=== PATIENT | female | born 1965 | race Caucasian/White ===

== ENCOUNTER 2016-07-02 10:09 | Emergency (ER) | payer BC ==
[~2016-07-02] VITALS: Ht 167.6 cm; Wt 54.0 kg
[~2016-07-02 10:09] MED LIST: NAPR500T PO
[2016-07-02 10:12] VITALS: BP 129/82
[2016-07-02 11:41] LABS: BILIRUBIN,URINE NEGATIVE (NEG); GLUCOSE,URINE NEGATIVE (NEG); NITRITE,URINE POSITIVE (NEG); PH,URINE 6.5; PROTEIN,URINE NEGATIVE (NEG-TRACE); UROBILINOGEN,URINE 0.2 mg/dL (0.2 mg/dL)
--- NOTE | 2016-07-02 12:18 | PHYS DOC ---
Past Medical History Past Medical History: No Pertinent History Past Surgical History: , Other Additional Past Surgical Histo: 2C-sections, 4Back surgeries,BREAST AUGMENTATION Smoking: Quit Less Than 1 Year Alcohol Use: Occasionally Drug Use: Marijuana Adult General Chief Complaint Chief Complaint: VAGINAL PROBLEM [facility] HPI Patient is a 50 year old female who presents with vaginal itching and discharge for 3-4 days. She has urinary frequency without dysuria, urinary urgency, or hematuria. She has suprapubic pain. She denies fever, nausea, vomiting, or flank pain. The patient had intercourse with a new partner approximately one week ago. She is concerned for STDs and requests prophylactic treatment in the emergency department today. She is no longer having menstrual cycles. Her PCP is Dr. Gennaro Irby. Review of Systems Review of Systems Constitutional: Denies fever or chills. [] Eyes: Denies change in visual acuity, redness, or eye pain. [] HENT: Denies ear pain, nasal congestion or sore throat. [] Respiratory: Denies cough or shortness of breath. [] Cardiovascular: Denies chest pain, palpitations or edema. [] GI: Denies nausea, vomiting, bloody stools or diarrhea. Reports suprapubic pain. : Denies dysuria, hematuria or urinary urgency. Reports urinary frequency, vaginal itching, and vaginal discharge. Musculoskeletal: Denies back pain or joint pain. [] Integument: Denies rash or skin lesions. [] Neurologic: Denies headache, focal weakness or sensory changes. [] Endocrine: Denies polyuria or polydipsia. [] Psych: Denies anxiety or depression. [] All systems reviewed and negative unless otherwise stated in the HPI. Current Medications Current Medications Current Medications Medications (Trade) Dose Ordered Sig/Rohini Start Time Stop Time Status Last Admin Dose Admin Azithromycin (Zithromax) 1,000 mg 1X STAT 07/02/16 12:43 07/02/16 12:46 DC 07/02/16 12:47 1,000 MG Ceftriaxone Sodium (Rocephin Im) 250 mg 1X ONCE 07/02/16 12:30 07/02/16 12:31 DC 07/02/16 12:46 250 MG Allergies Allergies Allergies Coded Allergies Type Severity Reaction Last Updated Verified No Known Drug Allergies 10/16/13 No Physical Exam Physical Exam Constitutional: Well developed, well nourished, no acute distress, non-toxic appearance. [] HENT: Normocephalic, atraumatic, oropharynx moist. [] Eyes: PERRLA, EOMI, conjunctiva normal, no discharge. [] Neck: Normal range of motion, no tenderness, supple, no stridor. [] Cardiovascular: Heart rate regular rhythm, no murmur. [] Lungs & Thorax: Bilateral breath sounds clear to auscultation without wheezes, rales, or rhonchi. [] Abdomen: Bowel sounds normal, soft, no tenderness, no masses, no pulsatile masses. [] Female : ED RN manager center present during exam. Normal external genitalia. There is white discharge within the vagina. There is no cervicitis or CMT. There is no adnexal mass or tenderness. Skin: Warm, dry, no erythema, no rash. [] Back: No midline tenderness, no CVA tenderness. [] Extremities: No tenderness, ROM intact, no edema. Distal pulses equal bilaterally. [] Neurologic: Alert and oriented X 3, normal motor function, normal sensory function, no focal deficits noted. [] Psychologic: Affect normal, judgement normal, mood normal. [] Current Patient Data Vital Signs Vital Signs Date Time Temp Pulse Resp B/P Pulse Ox O2 Delivery O2 Flow Rate FiO2 07/02/16 10:12 99.3 82 18 129/82 99 Room Air 99.3 Lab Values Laboratory Tests Test 07/02/16 11:25 Urine Collection Type Void Urine Color Yellow Urine Clarity Clear Urine pH 6.5 Urine Specific [place] 1.025 Urine Protein Negativemg/dL (NEG-TRACE) Urine Glucose (UA) Negativemg/dL (NEG) Urine Ketones (Stick) Negativemg/dL (NEG) Urine Blood Trace (NEG) Urine Nitrite Positive (NEG) Urine Bilirubin Negative (NEG) Urine Urobilinogen Dipstick 0.2mg/dL (0.2 mg/dL) Urine Leukocyte Esterase Large (NEG) Urine RBC 1-2/HPF (0-2) Urine WBC 20-40/HPF (0-4) Urine Squamous Epithelial Cells Mod/LPF Urine Bacteria Many/HPF (0-FEW) Urine Trichomonas Microbiology 07/02/16 Wet Prep - Final, Complete WET PREP Final YEAST NONE SEEN TRICHOMONAS PRESENT CLUE CELLS CLUE CELLS PRESENT ALTERED MARY ANNE ALTERED MARY ANNE PRESENT SUGGESTIVE OF BACTERIAL VAGINOSIS WBCS MODERATE SQUAMOUS EPS MODERATE EKG EKG [] Radiology/Procedures Radiology/Procedures [] Course & Med Decision Making Course & Med Decision Making Pertinent Labs and Imaging studies reviewed. (See chart for details) [] Dragon Disclaimer Dragon Disclaimer This electronic medical record was generated, in whole or in part, using a voice recognition dictation system. Departure Departure Impression: Primary Impression: UTI (urinary tract infection) Additional Impressions: Trichomonas vaginitis Bacterial vaginosis Concern about STD in female without diagnosis Disposition: 01 HOME, SELF-CARE Condition: STABLE Referrals: GENNARO IRBY (PCP) Patient Instructions: Bacterial Vaginosis, [id number], Sexually Transmitted Disease, [id number], Trichomoniasis-Brief, Urinary Tract Infection, Easy-to- Read Additional Instructions: Your urine was positive for infection. Your vaginal test was positive for Trichomonas and bacterial vaginosis. Trichomonas is an STD, bacterial vaginosis is not. You were also tested for gonorrhea and chlamydia in the emergency department today we will not receive those results back for 2-3 days. You were treated for gonorrhea and chlamydia in the emergency department today. You will receive a phone call if your test results are positive. Please complete all the prescribed antibiotics, even if you are feeling better. Please do not have sex for one week to be sure that the treatment is complete. Please inform your partner that you tested positive for Trichomonas so that he may be tested and treated as well. Return to the emergency department if you have any new or concerning symptoms. Scripts Sulfamethoxazole/Trimethoprim (Bactrim Ds Tablet)1 Each Tablet1 Tab PO BID #10 TAB Prov:GINA MALONE 07/02/16 Metronidazole (Flagyl)500 Mg Tablet1 Tab PO BID #14 TAB Prov:GINA MALONE 07/02/16 Problem Qualifiers Primary Impression: UTI (urinary tract infection) Urinary tract infection type: acute cystitis Hematuria presence: without hematuria Qualified Code: N30.00 - Acute cystitis without hematuria GINA MALONE Jul 02, 2016 12:17
[2016-07-02 12:21] LABS: BACTERIA,URINE MANY /HPF (0-FEW); SQUAMOUS EPITHELIAL CELL,UR MOD /LPF; WBC,URINE 20-40 /HPF (0-4)
[2016-07-02] MEDS ORDERED: CEFTRIAXONE IM 250 MG VIAL. IM ONE (12:30)
[2016-07-02] MEDS ORDERED: AZITHROMYCIN 250 MG TABLET. PO ONE (12:30)
[2016-07-02] MEDS ORDERED: AZITHROMYCIN 250 MG TABLET PO ONE (12:30)
[2016-07-02] MEDS ORDERED: AZITHROMYCIN 250 MG TABLET PO STA (12:43)
[2016-07-02] MEDS ORDERED: METR500T PO (13:17)
[2016-07-02] MEDS ORDERED: SULF1TAB24 PO (13:17)
--- NOTE | 2016-07-04 16:23 | VNOTE ---
CALL BACK NOTE CALL BACK Microbiology 07/02/16 Wet Prep - Final, Complete 07/02/16 Urine Culture - Final, Complete 07/02/16 Urine Culture Result 1 (JAVI) - Final, Complete 07/02/16 Antimicrobic Susceptibility - Final, Complete The patient left prior to receiving her prescriptions or final results yesterday. Her prescriptions were left at the triage desk and the nurse called her to inform her to pick them up. I called her today to be sure she got the message. She has not yet gotten the prescriptions. I informed her that her urine was positive for infection, as well as positive bacterial vaginosis and trichomonas. I stressed the importance of treatment of these infections. She will come to get the prescriptions today. I verified that the paperwork is still at triage. GINA MALONE Jul 04, 2016 16:23
== END 2016-07-02 13:24 | disposition home or self-care (01) ==
LOC: ER 10:09
DX: N30.00 Acute cystitis without hematuria (principal); A59.01 Trichomonal vulvovaginitis; F12.10 Cannabis abuse, uncomplicated; Z11.3 Encounter for screening for infections with a predominantly sexual mode of transmission; Z87.891 Personal history of nicotine dependence
CPT/HCPCS: 81001; 87086; 87491; 87591; 96372; 99284; J0696; Q0111; Q0144

== ENCOUNTER 2016-07-27 16:50 | Emergency (ER) | payer BC ==
[~2016-07-27] VITALS: Ht 172.7 cm; Wt 55.3 kg
[~2016-07-27 16:50] MED LIST changes: +METR500T PO; +SULF1TAB24 PO
[2016-07-27 17:45] VITALS: BP 149/95
[2016-07-27] MEDS ORDERED: AMOX1TAB61 PO (18:26)
--- NOTE | 2016-07-27 18:26 | PHYS DOC ---
Past Medical History Past Medical History: Other Additional Past Medical Histor: TBI Past Surgical History: , Other Additional Past Surgical Histo: 2C-sections, 4Back surgeries,BREAST AUGMENTATION Additional Information: currently wearing nicotine patch Alcohol Use: None Drug Use: Marijuana Adult General Chief Complaint Chief Complaint: SORE THROAT HPI HPI Patient is a 50 year old female presents emergency Department stating she's been having frontal headache for the last 2 weeks. She states that it's a pressure type headache. She has not been taking anything for the pain and discomfort. She also states that she's been having a low-grade fever with a sore throat for the last 2-3 days. She does state that she has been having some nasal drainage and discharge. She denies any nausea vomiting or any diarrhea. Review of Systems Review of Systems Constitutional: low grade fever at home Eyes: Denies change in visual acuity, redness, or eye pain [] HENT:nasal congestion and sore throat [] Respiratory: Denies cough or shortness of breath [] Cardiovascular: No additional information not addressed in HPI [] GI: Denies abdominal pain, nausea, vomiting, bloody stools or diarrhea [] : Denies dysuria or hematuria [] Musculoskeletal: Denies back pain or joint pain [] Integument: Denies rash or skin lesions [] Neurologic: Denies headache, focal weakness or sensory changes [] Allergies Allergies Allergies Coded Allergies Type Severity Reaction Last Updated Verified codeine Allergy Intermediate itching 07/27/16 Yes Physical Exam Physical Exam Constitutional: Well developed, well nourished, no acute distress, non-toxic appearance. [] HENT: Normocephalic, atraumatic, bilateral external ears normal, oropharynx moist, no oral exudates, nose normal. Bilateral tympanic membranes appear to be normal. Throat with erythematous no exudate noted no uvula deviation noted. Eyes: PERRLA, EOMI, conjunctiva normal, no discharge. [] Neck: Normal range of motion, no tenderness, supple, no stridor. [] Cardiovascular:Heart rate regular rhythm, no murmur [] Lungs & Thorax: Bilateral breath sounds clear to auscultation [] Skin: Warm, dry, no erythema, no rash. [] Back: No tenderness Extremities: No tenderness, no cyanosis, no clubbing, ROM intact, no edema. [] Neurologic: Alert and oriented X 3, normal motor function, normal sensory function, no focal deficits noted. [] Psychologic: Affect normal, judgement normal, mood normal. [] Current Patient Data Vital Signs Vital Signs Date Time Temp Pulse Resp B/P Pulse Ox O2 Delivery O2 Flow Rate FiO2 07/27/16 17:45 99.7 80 20 100 Room Air 99.7 EKG EKG [] Radiology/Procedures Radiology/Procedures [] Course & Med Decision Making Course & Med Decision Making Pertinent Labs and Imaging studies reviewed. (See chart for details) Rapid strep was negative. Patient will be placed on Augmentin 1 tablet twice day for the next 10 days. Recommended Sudafed to help with sinus pressure as well as Mucinex DM. Patient agrees with discharge instructions, treatment regimens and follow-up recommendations. Since symptoms to return back to emergency department been provided. Patient agrees with discharge instructions treatment regimens and follow-up recommendations. [] Dragon Disclaimer Dragon Disclaimer This electronic medical record was generated, in whole or in part, using a voice recognition dictation system. Departure Departure Impression: Primary Impression: Acute sinusitis Disposition: 01 HOME, SELF-CARE Condition: STABLE Referrals: NO PCP (PCP) Patient Instructions: Sinusitis, [id number] Additional Instructions: Activity as tolerated. Tylenol or ibuprofen for fever chills or generalized body aches and discomfort. Sudafed instructed by [employer]. Mucinex DM instructed by [employer] as well. Drink plenty of fluids such as water. Primary care physician in the next 5-7 days. Return back to emergency prior signs and symptoms of become worse. Scripts Amoxicillin/Potassium Clav (Augmentin 875-125 Tablet)1 Each Tablet1 Tab PO BID # 20 TAB Prov:BOSSMAN RODGERS APRN 07/27/16 BOSSMAN RODGERS APRN Jul 27, 2016 18:26
[2016-07-27] MEDS ORDERED: IBUPROFEN 600 MG TABLET. PO ONE (18:30)
[2016-07-28 07:30] LABS: NEGATIVE OBC STREP NEG; POSITIVE OBC STREP POS
== END 2016-07-27 18:30 | disposition home or self-care (01) ==
LOC: ER 16:50
DX: J01.90 Acute sinusitis, unspecified (principal); F12.10 Cannabis abuse, uncomplicated; Z88.5 Allergy status to narcotic agent
CPT/HCPCS: 87070; 87880; 99283

== ENCOUNTER → 2016-09-15 | Outpatient (CLI) | payer BC ==
[~2016-09-15] MED LIST changes: +AMOX1TAB61 PO
--- NOTE | 2016-09-15 15:09 | KCIC ---
MRI Cervical Spine Without Contrast History: Neck pain/cervicalgia, previous trauma, numbness in extremities Technique: Multiplanar, multi sequential noncontrast MR imaging was performed of the cervical spine. Comparison: None Findings: There is some motion degradation. Cervical vertebral body stature is mostly preserved other than superior C6 Schmorl's node. There is amorphous edema about the superior C6 Schmorl's node and also about inferior C5 endplate, also minimally about superior C7 endplate and small Schmorl's node. There is more advanced degenerative disc disease C5-C6 and to a lesser degree at C3-4 and minimally at C6-7. There is negligible anterior spondylolisthesis C7-T1. There is mild dextroscoliosis. C2-C3: Spinal canal and neural foramina are adequate. C3-C4: Spinal canal is adequate. There is uncovertebral degenerative change bilaterally greater on the left. There is mild narrowing of the right neural foramen, at least moderate narrowing of the left neural foramen. C4-C5: There is posterior annular tear. Spinal canal and neural foramina are adequate. C5-C6: There is disc osteophyte complex and superimposed broad posterior bulge, minimal narrowing of the central canal to 8 to 9 mm. There is uncovertebral degenerative change. There is suspected mild/moderate left and mild right neural foramen compromise. C6-C7: There is posterior bulge/broad protrusion which slightly indents the ventral thecal sac, central canal minimally narrowed to 9-10 mm. Neural foramina are overall adequate. C7-T1: Spinal canal and neural foramina are adequate. There is likely nerve root sleeve cyst in the distal right neural foramen up to 8 mm transverse. Impression: 1. There is mild spinal stenosis C5-C6 and C6-7. 2. There is neural foramina compromise as described greatest on the left at C3-4 and C5-C6. 3. There is advanced degenerative disc disease at C5-C6 and to a lesser degree at C3-4 and C6-7. Endplate edema greatest at C5-C6 is probably reactive/degenerative in etiology. There is mild spondylosis. Electronically signed by: Samy Rogel MD (09/15/2016 3:06 PM)
== END | disposition home or self-care (01) ==
LOC: KCIC MRI 13:51
PROVIDERS: ATTEND Family Medicine
DX: M48.02 Spinal stenosis, cervical region (principal); M50.322 Other cervical disc degeneration at C5-C6 level; M50.321 Other cervical disc degeneration at C4-C5 level; M50.323 Other cervical disc degeneration at C6-C7 level
CPT/HCPCS: 72141

== ENCOUNTER → 2017-01-28 | Outpatient (CLI) | payer BC ==
[~2017-01-28] MED LIST changes: +IOHEXOL 180 MG/ML 10 ML VIAL. ONE; +methylPREDNISolone ACETATE 40 MG/ML VIAL. ONE; +methylPREDNISolone ACETATE 80 MG/ML VIAL. ONE
--- NOTE | 2017-01-29 02:08 | PAIN ---
DATE OF SERVICE: 01/28/2017 INITIAL CONSULTATION FOR PAIN CLINIC CHIEF COMPLAINT: Neck and bilateral upper extremity pain, left greater than right. HISTORY OF PRESENT ILLNESS: This is a 51-year-old female who presents with history of pain in the base of the neck, shoulders, and upper extremities for about 2 years. The patient reports that she was involved in an accident at work about 2 months ago or so and hurt her left shoulder. She has not had this evaluated yet through worker's comp or through any other modalities. The patient reports still significant pain in both these areas. She did have an MRI scan of the cervical spine dated 09/15/2016 showing a C5-C6 disk osteophyte complex and a broad-based posterior bulge with minimal narrowing of the central canal and suspected mild to moderate left and mild right neural foraminal compromise, also C6-C7 showing posterior bulge broad protrusion slightly indenting the ventral thecal sac narrowed at 9-0 mm. Again, patient has not had any imaging or any studies by her report on her left shoulder from her injury at work. The patient reports the pain is constant, sharp, stabbing, throbbing, shooting, radiating type, tingling, numbness, changes during the day, worse with activity, better with resting with cramping, aching, it keeps her awake at night almost constantly. The patient reports it is difficult for her to lay down at all because of the pain in the neck and the shoulder on the left side, especially laying on the left side. The patient reports it can affect her bowel or bladder control, causes more urgency with no loss of continence and it affects her ability to walk too because she gets dizzy when her neck pain and shoulder pain is at its worst. The patient rates her pain on disability rating from 0-10, 10 being the worst, as an 8 with family and home responsibilities, 10 with recreation, social activity and occupation, 8 with sexual behavior, 10 with self care and 10 with life support activities. The patient has tried some chiropractic treatment as well as doing exercise currently neither of which is significantly decreased the pain. She has not had any formal physical therapies or other modalities at this time. 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 PAST MEDICAL HISTORY: Significant for diet-controlled diabetes, cigarettes smoking, dizziness, headaches, seizures, arthritis, previous history of drug abuse including marijuana and methamphetamines. PREVIOUS SURGERY: Include D and C, lumbar fusion at L4-L5, x 4, 2 previous C-sections and breast augmentation. CURRENT MEDICATIONS: Include only [id number] Advil and Tylenol. REVIEW OF SYSTEMS: The patient's review of systems is positive for those items mentioned in the history of present illness. All systems reviewed and otherwise negative. It is complete, full and well documented on the patient's chart. ALLERGIES: The patient is allergic to CODEINE. PHYSICAL EXAMINATION: VITAL SIGNS: The patient's blood pressure is 132/79, pulse 83, respirations 18, temperature 98.1 degrees Fahrenheit, height is 5 feet 8 inches, weighs 117 pounds. GENERAL: The patient is awake, alert, oriented, appropriate, very pleasant demeanor. HEENT: Head shows normocephalic, atraumatic. Extraocular movements are intact and symmetrical. Oral cavity shows mucous membranes moist and pink. Dentition is intact. NECK: Shows anterior throat supple without palpable lymphadenopathy noted. Swallow reflex is symmetrical. CHEST: Shows normal on inspection. Breath sounds are clear to auscultation bilaterally. HEART: Shows S1 and S2 clear. No murmurs auscultated. ABDOMEN: Soft, nontender, nondistended. No palpable organomegaly. No rebound or guarding demonstrated. BACK: Shows spine grossly in the midline. Normal appearing cervical lordotic curvature, thoracic kyphotic curvature, and lumbar lordotic curvature. The patient has well-healed surgical scars noted in the lumbar distribution, some flattening of lumbar curvature. Neck shows posterior cervical musculature is symmetrical on inspection without significant atrophy, hypertrophy or asymmetry, shows some [id number] tenderness with palpation throughout the upper, middle, lower distribution of paraspinous muscles, but only diffusely without radiation. No tenderness over the upper thoracic paraspinous musculature to any significant amount, some tenderness in the superior medial and lateral trapezius muscles, mostly medial and superior, again the right and left essentially equal. The patient shows good rotational motion of the cervical spine, some mild guarding with rotation, but past 45 degrees right and left as well as full extension, full forward flexion without mechanical limitation. Patient's upper extremities show deep tendon reflexes 2+ in the biceps and triceps tendons. 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 Peripheral pulses are 2+ radial distribution. No peripheral edema is noted. No clubbing, no cyanosis. Upper extremities are warm and dry to touch, equal in color and appearance. Peripheral pulses are 2+ radial distribution bilaterally. Shoulder shrug is strong and intact without loss of strength on resistance, but with pain reported in the bilateral shoulders as well as abduction of the shoulders to 90 degrees without loss of strength on resistance again, but with pain reported in the bilateral upper shoulders and the base of the neck without radiation. IMPRESSION: 1. This is a 51-year-old female with about 2-year history of pain in the base of the neck and upper extremities. 2. Injury at work by her report with left shoulder about 2 months ago or so. 3. MRI scan of cervical spine as noted. 4. Arthritis. 5. Cigarettes smoking. PLAN: Options were discussed with the patient including conservative medical management, physical therapy, interventional techniques and she would like to pursue interventional techniques. We discussed a cervical epidural steroid injection using description as well as anatomical models to describe the procedure. Risks were then discussed including, but not limited to bleeding, infection, possibility of epidural hematoma and subsequent neurologic compromise, dural puncture, headaches, spinal cord and/or nerve damage, side effects of steroid medication and poor results regarding pain control. The patient understands and wishes to proceed. The patient will return to the clinic in approximately 2 weeks for followup. She was counseled on return appointment, activity level and side effects to be aware of. DIAGNOSIS: Cervical radiculopathy with cervical spinal stenosis. PROCEDURE: Cervical epidural steroid injection in translaminar approach at C6-C7 level using C-arm fluoroscopic guidance under sterile prep and drape using a local anesthetic. MEDICATION INJECTED: A total of 120 mg of Depo-Medrol plus 10 mL of preservative-free normal saline and 2 mL of Isovue for contrast. CONDITION AT DISCHARGE: Stable. The patient tolerated procedure well, had no complications. KEN MELENDEZ MD DR: BERNADETTE/chris JOB#: [id number] / [id number]
== END | disposition home or self-care (01) ==
LOC: PNCL 08:37
PROVIDERS: ATTEND Anesthesiology
DX: M48.02 Spinal stenosis, cervical region (principal); M54.10 Radiculopathy, site unspecified; F17.200 Nicotine dependence, unspecified, uncomplicated; M19.91 Primary osteoarthritis, unspecified site; Z88.6 Allergy status to analgesic agent
CPT/HCPCS: 62321; J1030; J1040

== ENCOUNTER → 2017-02-17 | Outpatient (CLI) | payer BC ==
--- NOTE | 2017-02-18 03:25 | PAIN ---
DATE OF SERVICE: 02/17/2017 PROGRESS NOTE FOR PAIN CLINIC DIAGNOSIS: Cervical radiculopathy with cervical spinal stenosis. HISTORY OF PRESENT ILLNESS: The patient is a 51-year-old female who returns for followup status post cervical epidural steroid injection x 1. The patient reports approximately 75% improvement after the first injection and is still doing about 75% better with still some pain in the base of the neck and left shoulder and arm but much improved, not radiating as far she did last time. She has been increasing her activity with greater ease and comfort and sleeping better at night. Pain does not awaken her from sleep. The patient reports that the pain is now only on and off, which she uses her left upper extremity but much better than it was and usually only with repetitive motions not just simply using it to drive the car or to get dressed. The patient reports her pain is at 2 on a scale of 10 at its least, 4 on average and 6 at its worse and is currently at 2 today. The patient reports otherwise doing well. No new changes. She does have a rash on her elbows and her right leg, which was not there prior to her injection and is slightly itchy but she has an appointment to see her senior facilities manager for this as well. PHYSICAL EXAMINATION: VITAL SIGNS: The patient's blood pressure 133/80, pulse 87, respirations is 16, temperature 98.0 degrees Fahrenheit and weight is 121 pounds. GENERAL: The patient is awake, alert, oriented, appropriate and very pleasant demeanor. HEENT: Head shows normocephalic and atraumatic. Extraocular movements are intact and symmetrical. Oral cavity shows mucous membranes moist and pink. Dentition is intact. NECK: Shows anterior throat supple without palpable lymphadenopathy noted. Swallow reflex is symmetrical. CHEST: Shows normal on inspection. Breath sounds clear to auscultation bilaterally. HEART: Shows S1 and S2 clear. ABDOMEN: Soft, nontender and nondistended. No palpable organomegaly is noted. BACK: Shows spine grossly in the midline. Normal appearing cervical lordotic curvature, thoracic kyphotic curvature and lumbar lordotic curvature. Cervical paraspinous musculature shows symmetrical with only some very mild tenderness at the inferior aspect of the cervical paraspinous muscles on palpation only on the left side, but very minimal pain reported and supple musculature. The patient has full rotational motion of the cervical spine, both laterally greater than 45 degrees as well as extension and forward flexion without difficulty. EXTREMITIES: Upper extremities show deep tendon reflexes 2+ in the biceps and triceps tendons. Motor exam is approximately 5/5 on the right and 4/5 with the left biceps but 5/5 with snow maker strength and triceps. Peripheral pulses are 2+, radial distribution. No peripheral edema is noted. Options were discussed with the patient and the patient's old chart was reviewed as her current medication regimen updated. Current review of systems updated today as well. We will proceed with second cervical epidural steroid injection today with fluoroscopic guidance. Risks were again discussed including, but not limited to bleeding, infection, possibility of epidural hematoma, subsequent neurologic compromise, dural puncture, headaches, spinal cord and/or nerve damage, side effects of steroid medication and poor results regarding pain control. The patient understands and wishes to proceed. The patient to return to clinic in approximately 2 weeks for followup, was counseled on return appointment, activity level and side effects to be aware of. DIAGNOSIS: Cervical radiculopathy with cervical spinal stenosis. PROCEDURE: Cervical epidural steroid injection, translaminar approach at the C6-C7 level using C-arm fluoroscopic guidance under sterile prep and drape using local anesthetic. MEDICATION INJECTED: A total of 120 mg Depo-Medrol plus 5 mL of preservative-free normal saline and 2 mL of Isovue for contrast. CONDITION AT DISCHARGE: Stable. The patient tolerated procedure well, had no complications. KEN MELENDEZ MD DR: BERNADETTE/chris JOB#: [id number] / [id number]
== END | disposition home or self-care (01) ==
LOC: PNCL 13:09
PROVIDERS: ATTEND Anesthesiology
DX: M48.02 Spinal stenosis, cervical region (principal); M54.12 Radiculopathy, cervical region; Z88.6 Allergy status to analgesic agent
CPT/HCPCS: 62321; J1030; J1040